=== PATIENT | male | born 1980 | race Caucasian/White ===

== ENCOUNTER 2021-09-08 08:43 | Emergency (ER) | payer OTHER ==
[2021-09-08] MEDS ORDERED: methylPREDNISolone Sodium Succinate 125 MG/2 ML SDV IVPUSH PRN (09:44)
[2021-09-08] MEDS ORDERED: diphenhydrAMINE 50 MG/ML SDV IVPUSH PRN (09:44)
[2021-09-08] MEDS ORDERED: Famotidine 20 MG/2 ML SDV IVPUSH PRN (09:44)
[2021-09-08] MEDS ORDERED: EPINEPHrine 1 MG/1 ML Amp IM PRN (09:44)
[2021-09-08] MEDS ORDERED: Sodium Chloride 0.9% 10 ML Syringe FLUSH SCH (09:45)
--- NOTE | 2021-09-08 10:49 | EDM.PDOC ---
ED HPI GENERAL MEDICAL PROBLEM - General Chief Complaint: General Time Seen by Provider: 09/08/21 10:05 Source of Information: Reports: Patient - History of Present Illness INITIAL COMMENTS - FREE TEXT/NARRATIVE: Peter is a 40 y/o male who comes to the ER with his for URI sx. He has had mild sx for the last couple days. was tested for COVID and she is positive. No fever. He has been vaccinated for COVID. Nare Pain Score (Numeric/FACES): 2 - Related Data Allergies Allergy/AdvReac Type Severity Reaction Status Date / Time bee venom protein (honey bee) Allergy Hives Verified 09/08/21 09:29 lisinopril AdvReac Cough Verified 09/08/21 09:29 Home Meds: Home Meds Chlorthalidone 25 mg PO DAILY 09/08/21 [History] Levothyroxine Sodium [Levothyroxine] 75 mcg PO DAILY 09/08/21 [History] Losartan Potassium 100 mg PO DAILY 09/08/21 [History] Nebivolol [Bystolic] 20 mg PO DAILY 09/08/21 [History] Pantoprazole [ProTONIX] 40 mg PO DAILY 09/08/21 [History] Potassium Chloride 20 meq PO DAILY 09/08/21 [History] atoMOXetine HCl [Atomoxetine HCl] 25 mg PO DAILY 09/08/21 [History] Past Medical History Cardiovascular History: Reports: Hypertension Gastrointestinal History: Reports: GERD Psychiatric History: Reports: ADHD - Infectious Disease History Infectious Disease History: Reports: Novel Coronavirus Social & Family History - Tobacco Use Tobacco Use Status *Q: Never Tobacco User ED ROS GENERAL - Review of Systems Review Of Systems: See Below Constitutional: Reports: No Symptoms HEENT: Reports: Sinus Problem (Congestion) Respiratory: Reports: No Symptoms Cardiovascular: Reports: No Symptoms Endocrine: Reports: No Symptoms GI/Abdominal: Reports: No Symptoms : Reports: No Symptoms Musculoskeletal: Reports: No Symptoms Skin: Reports: No Symptoms Neurological: Reports: No Symptoms Psychiatric: Reports: No Symptoms Hematologic/Lymphatic: Reports: No Symptoms Immunologic: Reports: No Symptoms ED EXAM, GENERAL - Physical Exam Exam: See Below Exam Limited By: No Limitations General Appearance: Alert, WD/WN, No Apparent Distress, Obese (Adult male) Eye Exam: Bilateral Eye: PERRL Ears: Normal External Exam, Normal Canal, Hearing Grossly Normal, Normal TMs Nose: Normal Inspection, Normal Mucosa Throat/Mouth: Normal Inspection, Normal Lips, Normal Voice, Other (Pharnyx slightly irritated) Head: Atraumatic, Normocephalic Neck: Supple Respiratory/Chest: No Respiratory Distress, Lungs Clear, Chest Non-Tender Cardiovascular: Normal Peripheral Pulses, Regular Rate, Rhythm, No Murmur GI/Abdominal: Normal Bowel Sounds, Soft (Male) Exam: Deferred Rectal (Males) Exam: Deferred Back Exam: Normal Inspection Extremities: Normal Inspection, Normal Range of Motion, Normal Capillary Refill Neurological: Alert, Oriented, CN II-XII Intact, Normal Cognition, No Motor/Sensory Deficits Psychiatric: Normal Affect Course - Vital Signs Text/Narrative:: The patient was seen by the IMPLEMENTATION DIRECTOR. COVID test done. His result was positive. He was given an infusion on monoclonal antibodies since he met the criteria. Advised to use OTC meds. Written instructions were given and he left the ER in stable condition. Last Recorded V/S: Last Vital Signs Temp 36.8 C 09/08/21 08:45 Pulse 72 09/08/21 08:45 Resp 16 09/08/21 08:45 BP 138/77 09/08/21 08:45 Pulse Ox 95 09/08/21 08:45 - Orders/Labs/Meds Orders: Active Orders 24 hr Category Date Time Status Vital Signs [RC] Q15M Care 09/08/21 09:44 Active EPINEPHrine [Adrenalin] Med 09/08/21 09:44 Active 0.3 mg IM ASDIRECTED PRN Famotidine [Pepcid] Med 09/08/21 09:44 Active 20 mg IVPUSH ASDIRECTED PRN Sodium Chloride 0.9% [Saline Flush] Med 09/08/21 09:45 Active 30 ml FLUSH ASDIRECTED diphenhydrAMINE [Benadryl] Med 09/08/21 09:44 Active 50 mg IVPUSH ASDIRECTED PRN methylPREDNISolone Sod Succ [Solu-MEDROL] Med 09/08/21 09:44 Active 125 mg IVPUSH ASDIRECTED PRN Medication Orders Diphenhydramine HCl (Diphenhydramine 50 Mg/Ml Sdv) 50 mg IVPUSH ASDIRECTED PRN PRN Reason: hypersensitivity reaction Epinephrine HCl (Epinephrine 1 Mg/1 Ml Amp) 0.3 mg IM ASDIRECTED PRN PRN Reason: hypersensitivity reaction Famotidine (Famotidine 20 Mg/2 Ml Sdv) 20 mg IVPUSH ASDIRECTED PRN PRN Reason: hypersensitivity reaction Methylprednisolone Sodium Succinate (Methylprednisolone Sodium Succinate 125 Mg/2 Ml Sdv) 125 mg IVPUSH ASDIRECTED PRN PRN Reason: hypersensitivity reaction Sodium Chloride (Sodium Chloride 0.9% 10 Ml Syringe) 30 ml FLUSH ASDIRECTED GURJIT Labs: Laboratory Tests 09/08/21 09/08/21 Range/Units 09:00 09:00 SARS CoV-2 RNA Rapid LEWIS Positive H (NEGATIVE) Group A Strep (PCR) Not detected (NOT DETECT) Meds: Medications Generic Name Dose Route Start Last Admin Trade Name Freq PRN Reason Stop Dose Admin Diphenhydramine HCl 50 mg 09/08/21 09:44 Diphenhydramine 50 Mg/Ml Sdv IVPUSH ASDIRECTED PRN hypersensitivity reaction Epinephrine HCl 0.3 mg 09/08/21 09:44 Epinephrine 1 Mg/1 Ml Amp IM ASDIRECTED PRN hypersensitivity reaction Famotidine 20 mg 09/08/21 09:44 Famotidine 20 Mg/2 Ml Sdv IVPUSH ASDIRECTED PRN hypersensitivity reaction Methylprednisolone Sodium Succinate 125 mg 09/08/21 09:44 Methylprednisolone Sodium Succinate 125 Mg/2 Ml Sdv IVPUSH ASDIRECTED PRN hypersensitivity reaction Sodium Chloride 30 ml 09/08/21 09:45 Sodium Chloride 0.9% 10 Ml Syringe FLUSH ASDIRECTED GURJIT Discontinued Medications Generic Name Dose Route Start Last Admin Trade Name Freq PRN Reason Stop Dose Admin CASIRIVIMAB/IMDEVIMAB 10 ml/ 110 mls @ 220 mls/hr 09/08/21 09:44 09/08/21 09:49 Sodium Chloride IV 09/08/21 10:13 220 mls/hr ONETIME ONE Administration Departure - Departure Time of Disposition: 10:47 Disposition: Home, Self-Care 01 Condition: Good Clinical Impression: COVID-19 - Discharge Information Instructions: 10 Things You Can Do to Manage Your COVID-19 Symptoms at Home - [facility] (03/22/2021), Symptoms of COVID-19 - [facility] (10/29/2020) Referrals: Callie Collazo, [Primary Care Provider] - Additional Instructions: - The signs and symptoms of COVID-19 present at illness onset vary, but over the course of the disease, most persons with COVID-19 will experience the following1,4-9: Fever (8399%) Cough (5982%) Fatigue (4470%) Anorexia (4084%) Shortness of breath (3140%) Sputum production (2833%) Myalgias (1135%) Atypical presentations have been described, and older adults and persons with medical comorbidities may have delayed presentation of fever and respiratory symptoms. Among patients who developed severe disease, the average time to developing shortness of breath ranged from 5 to 8 days, the average time to acute respiratory distress syndrome (ARDS) ranged from 8 to 12 days. Most patients are able to manage their symptoms at home. You can use any over t he counter medications to treat your symptom. -Ibuprofen /Acetaminophen as needed [You may also use over the counter meds] -Drink plenty of fluids -Rest -Follow [facility] guidelines, you will get a call from them in [facility] next day or two. -Return to the ER or clinic if your condition is not improving as expected or you have any worsening of symptoms that you are unable to manage at home. -See COVID Home Instruction Sheet below Sepsis Event Note (ED) - Evaluation Sepsis Screening Result: No Definite Risk - Focused Exam Vital Signs: Vital Signs Temp Pulse Resp BP Pulse Ox 09/08/21 08:45 36.8 C 72 16 138/77 95 - Problem List & Annotations (1) COVID-19 SNOMED Code(s): 929365998 Code(s): U07.1 - COVID-19 Status: Acute Current Visit: Yes Annotation/Comment:: MAB given in the ER. Treat sx with OTC meds. - Problem List Review Problem List Initiated/Reviewed/Updated: Yes - My Orders Last 24 Hours: My Active Orders 09/08/21 09:44 Vital Signs [RC] Q15M EPINEPHrine [Adrenalin] 0.3 mg IM ASDIRECTED PRN Famotidine [Pepcid] 20 mg IVPUSH ASDIRECTED PRN diphenhydrAMINE [Benadryl] 50 mg IVPUSH ASDIRECTED PRN methylPREDNISolone Sod Succ [Solu-MEDROL] 125 mg IVPUSH ASDIRECTED PRN 09/08/21 09:45 Sodium Chloride 0.9% [Saline Flush] 30 ml FLUSH ASDIRECTED - Assessment/Plan Last 24 Hours: My Active Orders 09/08/21 09:44 Vital Signs [RC] Q15M EPINEPHrine [Adrenalin] 0.3 mg IM ASDIRECTED PRN Famotidine [Pepcid] 20 mg IVPUSH ASDIRECTED PRN diphenhydrAMINE [Benadryl] 50 mg IVPUSH ASDIRECTED PRN methylPREDNISolone Sod Succ [Solu-MEDROL] 125 mg IVPUSH ASDIRECTED PRN 09/08/21 09:45 Sodium Chloride 0.9% [Saline Flush] 30 ml FLUSH ASDIRECTED Plan: See above
== END 2021-09-08 12:20 | disposition home or self-care (01) ==
LOC: VM.ED 08:43
DX: U07.1 COVID-19 (principal); I10 Essential (primary) hypertension; K21.9 Gastro-esophageal reflux disease without esophagitis; Z91.030 Bee allergy status; Z88.8 Allergy status to other drugs, medicaments and biological substances; Z79.899 Other long term (current) drug therapy
CPT/HCPCS: 87651-QW; 99283; 99283-25; M0243; Q0243; U0002